=== PATIENT | female | born 1955 ===

== ENCOUNTER 2017-03-24 21:24 | Emergency (ER) | payer MEDICAID ==
--- NOTE | 2017-03-24 22:42 | ED PDOC ---
HPI: CCC, URI, Sore Throat Time Seen by Provider: 03/24/17 22:25 Chief Complaint (Nursing): Cough, Cold, Congestion Chief Complaint (Provider): cough, congestion History Per: Patient History/Exam Limitations: no limitations Onset/Duration Of Symptoms: Days (5) Current Symptoms Are (Timing): Still Present Associated Symptoms: Fever, Chills, Sore Throat, Cough, Nasal Congestion Additional History Per: Patient Additional Complaint(s): 61 y/o female presents with cold-symptoms x 5 days. Patient reports fevers, nasal congestion, nonproductive cough with post-tussive vomiting. Denies chest pain, shortness of breath, palpitations, abdominal pain, leg pain/swelling. Past Medical History Reviewed: Historical Data, Nursing Documentation, Vital Signs Vital Signs: Last Vital Signs Temp 98.0 F 03/25/17 01:32 Pulse 86 03/25/17 01:32 Resp 18 03/25/17 01:32 BP 139/82 03/25/17 01:32 Pulse Ox 98 03/25/17 01:32 - Medical History PMH: Asthma, Back Problems, Diabetes (type II), HTN Denies: Chronic Kidney Disease - Surgical History Surgical History: Cholecystectomy, Hernia Repair (s/p incarceration 2014) - Family History Family History: States: Unknown Family Hx - Immunization History Hx Tetanus Toxoid Vaccination: No Hx Influenza Vaccination: No Hx Pneumococcal Vaccination: No - Home Medications Home Medications: Ambulatory Orders Medication Instructions Recorded Mometasone/Formoterol [Dulera 200 1 puff IH Q12H 06/28/15 Mcg/5 Mcg Inhaler] Montelukast [Singulair] 10 mg PO HS 06/28/15 Sertraline [Zoloft] 50 mg PO DAILY 06/28/15 Valsartan/Hydrochlorothiazide 1 tab PO DAILY 06/28/15 [Diovan Hct 320-25 mg Tablet] Dicyclomine [Bentyl] 20 mg PO Q12 PRN #20 tab 01/16/16 Ondansetron ODT [Zofran ODT] 4 mg PO Q6 PRN #16 odt 01/16/16 Albuterol 0.083% [Albuterol 1 vial IH Q6 PRN #30 vial 03/25/17 Sulfate 3 Ml] Albuterol HFA [Ventolin HFA 90 1 puff IH Q4 PRN #1 inh 03/25/17 mcg/actuation (8 g)] Fluticasone Nasal [Flonase] 1 actuation NS BID #1 bottle 03/25/17 Prednisone 50 mg PO DAILY #4 tablet 03/25/17 Promethazine HCl/Codeine 5 ml PO Q8 PRN 3 Days syrup 03/25/17 [Prometh-Codein 6.25-10 mg/5 ml] - Allergies Allergies/Adverse Reactions: Allergies Allergy/AdvReac Type Severity Reaction Status Date / Time No Known Allergies Allergy Verified 03/24/17 21:54 Review of Systems ROS Statement: Except As Marked, All Systems Reviewed And Found Negative Constitutional: Positive for: Fever, Chills ENT: Positive for: Nose Congestion Respiratory: Positive for: Cough, Wheezing Physical Exam - Reviewed Nursing Documentation Reviewed: Yes Vital Signs Reviewed: Yes - Physical Exam Appears: Positive for: Well, Non-toxic, Uncomfortable (coughing) Head Exam: Positive for: ATRAUMATIC, NORMAL INSPECTION, NORMOCEPHALIC Skin: Positive for: Normal Color Eye Exam: Positive for: Normal appearance ENT: Positive for: Nasal Congestion Cardiovascular/Chest: Positive for: Regular Rate, Rhythm Respiratory: Positive for: Wheezing (diffuse expiratory) Gastrointestinal/Abdominal: Positive for: Normal Exam Back: Positive for: Normal Inspection Extremity: Positive for: Normal ROM Neurologic/Psych: Positive for: Alert, Oriented - Laboratory Results Result Diagrams: 03/24/17 22:55 03/24/17 22:55 - ECG ECG: Positive for: Viewed By Me (reviewed by ED attending) ECG Rhythm: Positive for: Sinus Rhythm O2 Sat by Pulse Oximetry: 97 Pulse Ox Interpretation: Normal - Radiology X-Ray: Viewed By Me X-Ray Interpretation: No Acute Disease - Progress ED Course And Treament: labs, ekg, chest xray, flu, IV solumedrol, duoneb x 3 On re-eval, wheezing improved. Patient sleeping. Vitals stable. Patient educated on findings, discharged with rx prednisone, flonase, promethazine with codeine, albuterol HFA, albuterol nebs Advised follow up PMD 2-3 days. Return precautions given. Disposition - Clinical Impression Clinical Impression: Upper respiratory infection, Bronchospasm - Patient ED Disposition Is Patient to be Admitted: No Counseled Patient/Family Regarding: Studies Performed, Diagnosis, Need For Followup, Rx Given - Disposition Disposition: Routine/Home Disposition Time: 02:45 Condition: IMPROVED Prescriptions: Albuterol 0.083% [Albuterol Sulfate 3 Ml] 1 vial IH Q6 PRN #30 vial PRN Reason: Wheezing Albuterol HFA [Ventolin HFA 90 mcg/actuation (8 g)] 1 puff IH Q4 PRN #1 inh PRN Reason: Wheezing Fluticasone Nasal [Flonase] 1 actuation NS BID #1 bottle Prednisone 50 mg PO DAILY #4 tablet Promethazine HCl/Codeine [Prometh-Codein 6.25-10 mg/5 ml] 5 ml PO Q8 PRN 3 Days syrup PRN Reason: Cough Instructions: Upper Respiratory Infection (ED), Bronchospasm (ED) Forms: [employer] (Grenadian) Print Language: MARSHALLESE
[2017-03-24] MEDS ORDERED: Albuterol-Ipratrop 3 mg / 0.5 (3 ml) UD ONE (22:44)
[2017-03-24] MEDS: Albuterol-Ipratrop 3 mg / 0.5 (3 ml) UD IH STA ×2 (22:55)
[2017-03-24 23:14] VITALS: RESP 18
[2017-03-24 23:21] LABS: VENOUS BLOOD GAS BASE EXCESS 0.5 mmol/L (0.0-2.0); VENOUS BLOOD GAS PCO2 50 mmHg (40-60); VENOUS BLOOD GAS PO2 36 mm/Hg (30-55); VENOUS BLOOD PH 7.34 (7.32-7.43)
[2017-03-25 00:21] LABS: BASO % 0.3 % (0.0-2.0); EOS # 0.1 K/uL (0.0-0.7); EOS % 1.2 % (0.0-4.0); HEMOGLOBIN 12.3 g/dL (12.0-16.0); LYMPH # 2.9 K/uL (1.0-4.3); LYMPH % 40.3 % (20.0-40.0); MEAN CELL VOLUME 92.1 fl (81.0-99.0); MEAN CORPUSCULAR HEMOGLOBIN 29.9 pg (27.0-31.0); MEAN CORPUSCULAR HGB CONC 32.5 g/dL (33.0-37.0); MEAN PLATELET VOLUME 8.3 fl (7.2-11.7); MONO # 0.7 K/uL (0.0-0.8); MONO % 9.3 % (0.0-10.0); NEUT # 3.5 K/uL (1.8-7.0); NEUT % 48.9 % (50.0-75.0); NRBC % 0.1 % (0.0-0.0); RBC 4.11 Mil/uL (3.80-5.20); RED CELL DISTRIBUTION WIDTH 13.6 % (11.5-14.5); WHITE BLOOD COUNT 7.2 K/uL (4.8-10.8)
[2017-03-25 00:25] LABS: ALB/GLOB RATIO 1.2 (1.0-2.1); ALBUMIN 4.1 g/dL (3.5-5.0); ALT/SGPT 44 U/L (9-52); AST/SGOT 36 U/L (14-36); BLOOD UREA NITROGEN 14 mg/dl (7-17); CALCIUM 8.5 mg/dL (8.4-10.2); GFR AFRICAN-AMERICAN > 60; GFR NON-AFRICAN AMERICAN > 60
[2017-03-25 01:33] VITALS: BP 139/82; PULSE 86; TEMP 98
[2017-03-25] MEDS: Albuterol-Ipratrop 3 mg / 0.5 (3 ml) UD IH STA (01:56)
[2017-03-25 02:44] VITALS: O2SAT 97
--- NOTE | 2017-03-25 08:23 | CARD ---
APPROVED REPORT EKG Measurement Heart [id number] <Conclusion> Normal sinus rhythm Right bundle branch block Moderate voltage criteria for LVH, may be normal variant Abnormal ECG
--- NOTE | 2017-03-25 09:36 | RAD ---
HISTORY: fever, cough COMPARISON: Chest radiograph dated 11/02/2013 TECHNIQUE: Chest PA and lateral FINDINGS: LUNGS: No active pulmonary disease. PLEURA: No significant pleural effusion identified. No pneumothorax apparent. CARDIOVASCULAR: Normal. OSSEOUS STRUCTURES: Unchanged. VISUALIZED UPPER ABDOMEN: Normal. OTHER FINDINGS: None. IMPRESSION: No active disease.
== END 2017-03-25 02:55 | disposition home or self-care (01) ==
LOC: H.ER 21:24
DX: J98.01 Acute bronchospasm (principal); J06.9 Acute upper respiratory infection, unspecified; E11.9 Type 2 diabetes mellitus without complications; I10 Essential (primary) hypertension
CPT/HCPCS: 71046; 80053; 82803; 85025; 87804; 93005; 94150; 94640; 96374; 99283; J2930